=== PATIENT | female | born 1980 | race Caucasian/White ===

== ENCOUNTER 2016-07-12 20:42 | Emergency (ER) | payer MEDICAID ==
[~2016-07-12] VITALS: Ht 154.9 cm; Wt 72.6 kg
[2016-07-12 21:07] VITALS: BP 142/100
--- NOTE | 2016-07-12 22:09 | NUR ---
PT TAKEN TO OF3
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
--- NOTE | 2016-07-12 22:17 | NUR ---
Dr. Stone evaluating patient at bedside.
[2016-07-12] MEDS ORDERED: KETOROLAC 60 MG/2 ML VIAL IM ONE (22:25)
[2016-07-12] MEDS ORDERED: HYDROcodone/APAP 5/325 MG 1 TAB TAB PO ONE (22:25)
--- NOTE | 2016-07-12 22:40 | NUR ---
PT TAKEN TO XRAY
--- NOTE | 2016-07-12 22:59 | NUR ---
PT RETURN FROM XRAY TO BED 5
--- NOTE | 2016-07-12 23:47 | NUR ---
Patient discharged with v/s stable. Written and verbal after care instructions given and explained. Patient alert, oriented and verbalized understanding of instructions. Ambulatory with steady gait. All questions addressed prior to discharge. ID band removed. Patient advised to follow up with PMD IN 3-4 DAYS. Rx of NORCO AND NAPROSYN given. Patient educated on indication of medication including possible reaction and side effects. Opportunity to ask questions provided and answered.
[2016-07-12 23:48] VITALS: BP 142/89
== END 2016-07-12 23:47 | disposition home or self-care (01) ==
LOC: MED 20:42
DX: S39.012A Strain of muscle, fascia and tendon of lower back, initial encounter (principal); S20.219A Contusion of unspecified front wall of thorax, initial encounter; S90.32XA Contusion of left foot, initial encounter; S40.811A Abrasion of right upper arm, initial encounter; R03.0 Elevated blood-pressure reading, without diagnosis of hypertension; V49.40XA Driver injured in collision with unspecified motor vehicles in traffic accident, initial encounter; Y93.89 Activity, other specified; Y92.411 Interstate highway as the place of occurrence of the external cause; Y99.8 Other external cause status
CPT/HCPCS: 71010; 72100; 73630; 96372; 99284; J1885